=== PATIENT | female | born 1965 | race Caucasian/White ===

== ENCOUNTER 2017-10-02 14:13 | Emergency (ER) | payer OTHER ==
[~2017-10-02] VITALS: Wt 103.9 kg
[2017-10-02] MEDS ORDERED: ONDANSETRON 4 MG INJ IV STA (16:00)
[2017-10-02 16:07] LABS: BASOPHIL # 0.1 10^3/ul (0.0-0.1); BASOPHILS % 0.8 % (0.0-2.0); EOSINOPHILS # 0.2 10^3/ul (0.0-0.5); EOSINOPHILS % 3.1 % (0.0-7.0); HEMATOCRIT 41.7 % (37.0-47.0); HEMOGLOBIN 13.8 g/dl (12.0-16.0); LYMPHOCYTES # 2.4 10^3/ul (0.8-2.9); LYMPHOCYTES % 31.3 % (15.0-51.0); MEAN CORPUSCULAR HEMOGLOBIN 29.7 pg (29.0-33.0); MEAN CORPUSCULAR HGB CONC 33.1 g/dl (32.0-37.0); MEAN CORPUSCULAR VOLUME 89.7 fl (82.0-101.0); MEAN PLATELET VOLUME 9.8 fl (7.4-10.4); MONOCYTE # 0.6 10^3/ul (0.3-0.9); MONOCYTES % 7.2 % (0.0-11.0); NEUTROPHIL # 4.4 10^3/ul (1.6-7.5); NEUTROPHILS % 57.3 % (39.0-77.0); PLATELET COUNT 277 10^3/UL (140-415); RED BLOOD COUNT 4.65 10^6/ul (4.20-5.40); RED CELL DISTRIBUTION WIDTH 13.1 % (11.5-14.5); WHITE BLOOD COUNT 7.7 10^3/ul (4.8-10.8)
[2017-10-02 16:27] LABS: ALBUMIN 4.4 g/dl (3.3-4.9); ALBUMIN/GLOBULIN RATIO 1.1; BILIRUBIN,INDIRECT 0.1 mg/dl (0-1.1); BILIRUBIN,TOTAL 0.1 mg/dl (0.2-1.3); CALCIUM 9.1 mg/dl (8.4-10.2); CREATININE 0.87 mg/dl (0.44-1.00); TOTAL PROTEIN 8.4 g/dl (6.1-8.1)
[2017-10-02] MEDS ORDERED: ONDA4TAB14 PO (16:39)
[2017-10-02] MEDS ORDERED: DICY10CA60 PO (16:39)
--- NOTE | 2017-10-02 16:47 | ERD ---
ER Documentation Chief Complaint Chief Complaint ABD PAIN, NAUSEA, ONSET 3 DAYS HPI This is a pleasant 52-year-old female, Tamazight-speaking who presents the emergency room with abdominal pain. She describes epigastric and periumbilical abdominal discomfort for approximately 2-3 days with associated several episodes of nonbloody nonbilious emesis. The abdominal pain is cramping, no diarrhea. The patient is passing gas without difficulty. Patient denies any chest pain or shortness of breath no fevers or chills. ROS All systems reviewed and are negative except as per history of present illness. Medications Home Meds Active Scripts Dicyclomine Hcl* (Bentyl*) 10 Mg Capsule, 10 MG PO QID Y for abdominal cramping , #20 CAP Prov:YARA FAGAN MD 10/02/17 Ondansetron (Ondansetron Odt) 4 Mg Tab.rapdis, 4 MG PO Q6H Y for NAUSEA AND/OR VOMITING, #30 TAB Prov:YARA FAGAN MD 10/02/17 Allergies Allergies: Coded Allergies: No Known Allergy (Unverified , 10/02/17) PMhx/Soc Medical and Surgical Hx: pt denies Medical Hx, pt denies Surgical Hx History of Surgery: No Anesthesia Reaction: No Hx Neurological Disorder: No Hx Respiratory Disorders: No Hx Cardiac Disorders: No Hx Psychiatric Problems: No Hx Miscellaneous Medical Probl: No Hx Alcohol Use: No Hx Substance Use: No Hx Tobacco Use: No Smoking Status: Never smoker FmHx Family History: No diabetes Physical Exam Vitals Vital Signs Date Time Temp Pulse Resp B/P Pulse Ox O2 Delivery O2 Flow Rate FiO2 10/02/17 14:18 98.0 95 17 133/84 97 Physical Exam General: Well developed, well nourished, no acute distress Head: Normocephalic, atraumatic. Eyes: Pupils equally reactive, EOM intact ENT: Moist mucous membranes Neck: Supple, no lymphadenopathy Respiratory: Lungs clear bilaterally, no distress Cardiovascular: RRR, no murmurs, rubs, or gallops Abdominal: Soft, non-tender, non-distended, no peritoneal signs negative Grant sign, no tenderness to McBurney's point : Deferred MSK: No edema, no unilateral swelling, 5/5 strength Neurologic: Alert and oriented, moving all extremities, normal speech, no focal weakness, no cerebellar signs Skin: No rash Psych: Normal mood Result Diagram: 10/02/17 1545 10/02/17 1545 Results 24 hrs Laboratory Tests Test 10/02/17 15:45 White Blood Count 7.710^3/ul Red Blood Count 4.6510^6/ul Hemoglobin 13.8g/dl Hematocrit 41.7% Mean Corpuscular Volume 89.7fl Mean Corpuscular Hemoglobin 29.7pg Mean Corpuscular Hemoglobin Concent 33.1g/dl Red Cell Distribution Width 13.1% Platelet Count 25850^3/UL Mean Platelet Volume 9.8fl Neutrophils % 57.3% Lymphocytes % 31.3% Monocytes % 7.2% Eosinophils % 3.1% Basophils % 0.8% Nucleated Red Blood Cells % 0.0/100WBC Neutrophils # 4.410^3/ul Lymphocytes # 2.410^3/ul Monocytes # 0.610^3/ul Eosinophils # 0.210^3/ul Basophils # 0.110^3/ul Nucleated Red Blood Cells # 0.010^3/ul Sodium Level 142mmol/L Potassium Level 4.0mmol/L Chloride Level 106mmol/L Carbon Dioxide Level 26mmol/L Anion Gap 14 Blood Urea Nitrogen 20mg/dl Creatinine 0.87mg/dl Glucose Level 97mg/dl Calcium Level 9.1mg/dl Total Bilirubin 0.1mg/dl Direct Bilirubin 0.00mg/dl Indirect Bilirubin 0.1mg/dl Aspartate Amino Transf (AST/SGOT) 26IU/L Alanine Aminotransferase (ALT/SGPT) 41IU/L Alkaline Phosphatase 106IU/L Total Protein 8.4g/dl Albumin 4.4g/dl Globulin 4.00g/dl Albumin/Globulin Ratio 1.10 Lipase 168U/L Current Medications Medications (Trade) Dose Ordered Sig/Jc Route PRN Reason Start Time Stop Time Status Last Admin Dose Admin Ondansetron HCl (Zofran Inj) 4 mg ONCE STAT IV 10/02/17 16:00 10/02/17 16:04 DC 10/02/17 16:25 Procedures/MDM LAB INTERPRETATION: No leukocytosis no evidence of hepatobiliary obstruction MEDICAL DECISION MAKING: The patient presents with abdominal pain vomiting that is most likely viral nature. She has a benign abdominal exam without focal tenderness. She has no chest pain and no exertional symptoms that would be concerning for cardiogenic etiology. The patient has a benign abdominal exam with normal vital signs not suggestive of acute intra-abdominal process or acute vascular process. For this reason I do not believe that the patient requires diagnostic imaging including CT imaging at this time. ER COURSE: The patient was offered pain medication but refused. She is mostly symptomatic presently. The patient's laboratory testing is unrevealing. At this time I believe she can be safely discharged home with symptom control including nausea medication and Bentyl. We discussed return precautions and the patient verbalized understanding and feels comfortable with the plan. I kept the patient and/or family informed of laboratory and diagnostic imaging results throughout the emergency room course. DISPOSITION PLAN: We discussed follow up with the patient's primary care doctor within 24 to 48 hours as needed. We also discussed return to the emergency room for worsening symptoms or worsening condition. Outpatient referral: [None required] Discharge Medications: Bentyl, Zofran Departure Diagnosis: Primary Impression: Abdominal pain Abdominal location: generalized Qualified Code: R10.84 - Generalized abdominal pain Additional Impression: Nausea and vomiting Vomiting type: unspecified Vomiting Intractability: non-intractable Qualified Code: R11.2 - Non-intractable vomiting with nausea, unspecified vomiting type Condition: Stable Patient Instructions: Abdominal Pain, Nausea and Vomiting-Adult Referrals: [facility] ted se barnett hecho un examen mdico de control que le indica que no est en kiel condicin que requiera tratamiento urgente en el Departamento de Emergencia. Un estudio ms profundo y el tratamiento de farrar condicin pueden esperar sin ningn riesgo hasta que usted sea atendida/o en el consultorio de farrar mdico o kiel cl angeli. Es responsabilidad suya arreglar kiel grant para el seguimiento del christie. MANEJO DE CONDICIONES NO URGENTES EN EL FUTURO 1) Si usted tiene un mdico de atencin primaria: Usted debera llamar a farrar mdico de atencin primaria antes de venir al departamento de emergencia. Despus de las horas de consultorio, farrar doctor o farrar asociado/a est disponible por telfono. El mdico o enfermero de aurora en el servicio telefnico puede asesorarle por aj medio para atender el problema, o christie contrario se puede programar kiel grant. 2) Si usted no tiene un mdico de atencin primaria: Llame al mdico o clnica de referencia que aparece abajo elieser las horas de consultorio para hacer kiel grant para que le vean. CLINICAS: [facility] [phone] [facility] [phone] [facility] [phone] [place] [address] [phone] [place] [id number] [phone] [facility] [phone] [facility]. [facility] () Usted se barnett hecho un examen mdico de control que le indica que no est en kiel condicin que requiera tratamiento urgente en el Departamento de Emergencia. Un estudio ms profundo y el tratamiento de farrar condicin pueden esperar sin ningn riesgo hasta que usted sea atendida/o en el consultorio de farrar mdico o kiel cl angeli. Es responsabilidad suya arreglar kiel grant para el seguimiento del christie. MANEJO DE CONDICIONES NO URGENTES EN EL FUTURO 1) Si usted tiene un mdico de atencin primaria: Usted debera llamar a farrar mdico de atencin primaria antes de venir al departamento de emergencia. Despus de las horas de consultorio, farrar doctor o farrar asociado/a est disponible por telfono. El mdico o enfermero de aurora en el servicio telefnico puede asesorarle por aj medio para atender el problema, o christie contrario se puede programar kiel grant. 2) Si usted no tiene un mdico de atencin primaria: Llame al mdico o condado institucions de referencia que aparece abajo elieser las horas de consultorio para hacer kiel grant para que le vean. SI USTED NO PUEDE PAGAR PARA MAY UN MEDICO puede ir a: [facility] [address] [place] [address] [facility] [address] [place] [address] [facility] [address] [place] [address] PARA [facility] [address] [place], [place] [id number] Additional Instructions: Llame al doctor nombrado abajo (Referral Sources) MAANA y kaveh kiel GRANT PARA DENTRO DE KIEL SEMANA. Dgale a la secretaria que nosotros le instruimos hacer esta grant.Avise o llame si farrar condicin se empeora antes de la grant. YARA FAGAN MD Oct 02, 2017 16:47
[2017-10-02 16:49] VITALS: BP 118/77; PULSE 77; RESP 18; TEMP 98
== END 2017-10-02 16:48 | disposition home or self-care (01) ==
LOC: E/R 14:13
DX: R10.84 Generalized abdominal pain (principal); R11.2 Nausea with vomiting, unspecified
CPT/HCPCS: 36415; 80053; 83690; 85025; 96374; J2405; Z7502

== ENCOUNTER 2017-11-17 08:43 | Emergency (ER) | END 2017-11-17 10:26 | disposition home or self-care (01) ==

== ENCOUNTER 2017-12-21 00:03 | Inpatient (IN) | END 2017-12-22 17:30 | disposition home or self-care (01) | DRG 872 ==

== ENCOUNTER 2019-02-26 15:23 | Emergency (ER) | payer OTHER ==
[~2019-02-26] VITALS: Wt 70.0 kg
[~2019-02-26 15:23] MED LIST: CIPR500T4 PO
[2019-02-26] MEDS ORDERED: ONDANSETRON 4 MG INJ IV STA (18:36)
[2019-02-26] MEDS ORDERED: SOD CHLORIDE 0.9% 1,000 ML IV STA ×2 (18:36→21:10)
[2019-02-26] MEDS ORDERED: morphine 4 MG/ML VIAL IV STA (18:36)
--- NOTE | 2019-02-26 19:04 | ERD ---
ER Documentation Chief Complaint Chief Complaint R UPPER QUAD ABD PAIN SUDDEN ONSET TODAY. NO N.V.D HPI This is a 54-year-old female with no past medical history. The patient is [place] speaking. The patient indicates that she is complaining of a sudden onset of right upper quadrant pain. She indicated that the abdominal pain oc curred several hours prior to arrival. The pain does not radiate to the tip of her right scapula. The pain does not radiate to her lower abdomen. She states the pain occurred after she ate salsa. She had no nausea vomiting or diarrhea. She states the pain is 8 out of 10 in intensity. She did not take any analgesic medication prior to arrival. She does indicate over the past several months she has had similar episodes of pain. ROS All systems reviewed and are negative except as per history of present illness. Medications Home Meds Active Scripts Sucralfate* (Carafate*) 1 Gm Tab, 1 GM PO AC MEALS AND BEDTIME, #30 TAB Prov:MAUREEN SHETTY MD 02/26/19 Discontinued Scripts Ciprofloxacin Hcl* (Ciprofloxacin Hcl*) 500 Mg Tablet, 500 MG PO BID for 7 Days, #14 TAB Prov:TU GRAY NP 12/22/17 Allergies Allergies: Coded Allergies: No Known Allergy (Unverified , 02/26/19) PMhx/Soc History of Surgery: Yes (c/s x3, tubal ligation) Anesthesia Reaction: No Hx Neurological Disorder: No Hx Respiratory Disorders: No Hx Cardiac Disorders: No Hx Psychiatric Problems: No Hx Miscellaneous Medical Probl: No Hx Alcohol Use: No Hx Substance Use: No Hx Tobacco Use: No Smoking Status: Unknown if ever smoked Physical Exam Vitals Vital Signs Date Temp Pulse Resp B/P (MAP) Pulse Ox O2 O2 Flow FiO2 Time Delivery Rate 02/26/19 54 16 114/78 100 Room Air 22:33 (90) 02/26/19 60 16 99/72 (81) 100 Room Air 19:50 02/26/19 98.8 90 18 135/80 96 15:26 (98) Physical Exam Constitutional:Well-developed. Well-nourished. HEENT:Normocephalic. Atraumatic.Pupils were equal round reactive to light. Moist mucous membranes.No tonsillar exudates. Neck: No nuchal rigidity. No lymphadenopathy. No posterior cervical spine tenderness or step-offs. Respiratory: Not using accessory muscles of respiration.Lungs were clear to auscultation bilaterally. No rhonchi. No rales. No wheezing. Cardiovascular: Regular rate regular rhythm.No murmurs. No rubs were appreciated.S1, S2 normal. Distal pulses are palpable 2+ bilaterally. GI: Abdomen was soft. Right upper quadrant tenderness with negative Grant sign. Non Distended. No pulsatile abdominal masses or bruits. No rebound. No guarding. Bowel sounds were present and normal. Muscle skeletal: Full range of motion of both the upper and lower extremities bilaterally.Normal muscle tone.No assymetrical calf tenderness or swelling. Skin: No petechia, no purpura. No lesions on the palms or the soles of the feet. No maculopapular rash. NEURO: Patient was alert, awake, orientated x3.No facial droop. Gait observed and normal with no ataxia.Speech had regular rate and rhythm. No focal neurological deficits. Result Diagram: 02/26/19 1843 02/26/19 1843 Results 24 hrs Laboratory Tests Test 02/26/19 18:43 02/26/19 22:05 White Blood Count 7.0 10^3/ul Red Blood Count 4.74 10^6/ul Hemoglobin 14.0 g/dl Hematocrit 42.1 % Mean Corpuscular Volume 88.8 fl Mean Corpuscular Hemoglobin 29.5 pg Mean Corpuscular Hemoglobin Concent 33.3 g/dl Red Cell Distribution Width 12.7 % Platelet Count 247 10^3/UL Mean Platelet Volume 10.0 fl Immature Granulocytes % 0.300 % Neutrophils % 50.3 % Lymphocytes % 40.1 % Monocytes % 6.3 % Eosinophils % 2.1 % Basophils % 0.9 % Nucleated Red Blood Cells % 0.0 /100WBC Immature Granulocytes # 0.020 10^3/ul Neutrophils # 3.5 10^3/ul Lymphocytes # 2.8 10^3/ul Monocytes # 0.4 10^3/ul Eosinophils # 0.2 10^3/ul Basophils # 0.1 10^3/ul Nucleated Red Blood Cells # 0.0 10^3/ul Prothrombin Time 12.7 Sec Prothrombin Time Ratio 1.0 INR International Normalized Ratio 0.94 Activated Partial Thromboplast Time 28.5 Sec Sodium Level 142 mmol/L Potassium Level 4.1 mmol/L Chloride Level 106 mmol/L Carbon Dioxide Level 27 mmol/L Anion Gap 9 Blood Urea Nitrogen 15 mg/dl Creatinine 0.82 mg/dl Est Glomerular Filtrat Rate mL/min > 60 mL/min Glucose Level 107 mg/dl Calcium Level 9.7 mg/dl Total Bilirubin 0.3 mg/dl Direct Bilirubin 0.00 mg/dl Indirect Bilirubin 0.3 mg/dl Aspartate Amino Transf (AST/SGOT) 21 IU/L Alanine Aminotransferase (ALT/SGPT) 19 IU/L Alkaline Phosphatase 98 IU/L Troponin I < 0.012 ng/ml Total Protein 8.5 g/dl Albumin 4.3 g/dl Globulin 4.20 g/dl Albumin/Globulin Ratio 1.02 Amylase Level 104 U/L Lipase 146 U/L Urine Color YELLOW Urine Clarity SLIGHTLY CLOUDY Urine pH 5.0 Urine Specific [place]el 1.013 Urine Ketones NEGATIVE mg/dL Urine Nitrite NEGATIVE mg/dL Urine Bilirubin NEGATIVE mg/dL Urine Urobilinogen NEGATIVE mg/dL Urine Leukocyte Esterase TRACE Domitila/ul Urine Microscopic RBC 1 /HPF Urine Microscopic WBC 14 /HPF Urine Squamous Epithelial Cells FEW /HPF Urine Bacteria FEW /HPF Urine Mucus FEW /HPF Urine Hemoglobin NEGATIVE mg/dL Urine Glucose NEGATIVE mg/dL Urine Total Protein NEGATIVE mg/dl Current Medications Medications Dose Sig/Jc Start Time Status Last (Trade) Ordered Route PRN Stop Time Admin Dose Reason Admin Sodium 1,000 ml @ Q1H STAT 02/26/19 DC 02/26/19 Chloride 1,000 mls/hr IV 18:36 18:55 02/26/19 19:35 Morphine 4 mg ONCE STAT 02/26/19 DC 02/26/19 Sulfate IV 18:36 19:31 (morphine) 02/26/19 18:38 Ondansetron 4 mg ONCE STAT 02/26/19 DC 02/26/19 HCl (Zofran IV 18:36 19:31 Inj) 02/26/19 18:38 Sodium 1,000 ml @ Q1H STAT 02/26/19 DC 02/26/19 Chloride 1,000 mls/hr IV 21:10 21:47 02/26/19 22:09 40 ml ONCE STAT 02/26/19 DC 02/26/19 Miscellaneous PO 21:10 21:47 Medication 02/26/19 21:26 (Gi Cocktail (2)) Belladonna/ 2 tab ONCE STAT 02/26/19 DC 02/26/19 Phenobarbital PO 21:10 21:47 () 02/26/19 21:26 Procedures/MDM The patient presented to the emergency department with epigastric pain. My differential diagnosis included but was not limited to abdominal aortic aneurysm, choledocholithiasis, gallstone ileus, renal colic, pyelonephritis, pancreatitis, peptic ulcer disease, atypical myocardical infarction, mesenteric ischemia, GERD, pulmonary infarction. The patient was placed on a cardiac/vascular sonographer, continuous pulse oximetry and IV access was established by nursing staff. The patient was given intravenous morphine Zofran and Toradol for analgesia control An EKG was obtained to rule out myocardial ischemia. There was no elevation of LFTs to suggest ductal obstruction, cholangitis, cholecystiitis or hepatitis. Given that the urinalysis did not show bilirubinuria, my suspicion for common duct obstruction or hepatitis was low. 12 Lead EKG tracing ordered and reviewed by myself showed: Sinus bradycardia 59 bpm and no arrhythmia. HI interval normal. QRS duration normal. No ST segment elevation No ST segment depression. No changes consistent with acute ischemia. I obtained an ultrasound that showed no evidence of cholelithiasis. The patient had a leukocytosis. There is no transaminitis. My clinical suspicion was low for appendicitis. I indicated the patient I did not have an exact etiology into her epigastric pain but I did feel she would benefit from an outpatient upper endoscopy. She was given a GI cocktail with significant improvement of her symptoms. Observation Note: Time: 4 hours Family Hx: No Hypertension Evaluation: Multiple exams showed improving symptoms and no evidence of worsening of her symptoms. Departure Diagnosis: Primary Impression: Abdominal pain Abdominal location: right upper quadrant Qualified Codes: R10.11 - Right upper quadrant pain Condition: MAUREEN King MD Feb 26, 2019 19:04
[2019-02-26] MEDS ORDERED: BELLADONNA/PHENOBARBITAL TAB PO STA (21:10)
[2019-02-26] MEDS ORDERED: LIDOCAINE/MYLANTA 40 ML BTL PO STA (21:10)
[2019-02-26] MEDS ORDERED: SUCR1TAB56 PO (22:24)
[2019-02-26 22:33] VITALS: BP 114/78; PULSE 54; RESP 16
== END 2019-02-26 22:35 | disposition home or self-care (01) ==
LOC: E/R 15:23
DX: R10.11 Right upper quadrant pain (principal)
CPT/HCPCS: 36415; 76705; 80053; 81001; 82150; 83690; 84484; 85025; 85610; 85730; 93005; 96374; 96375; J2270; J2405; J7030; Z7502; Z7610

== ENCOUNTER 2019-05-22 23:13 | Emergency (ER) | payer OTHER ==
[~2019-05-22] VITALS: Ht 160 cm; Wt 92.7 kg
[~2019-05-22 23:13] MED LIST changes: -CIPR500T4 PO; +IBUP-1542 PO; +ONDA4TAB14 PO; +SUCR1TAB56 PO
[2019-05-22 23:17] VITALS: Ht 160 cm; Wt 92.7 kg
[2019-05-23] MEDS ORDERED: ONDANSETRON (ODT) 4 MG TAB ODT STA (01:08)
--- NOTE | 2019-05-23 01:15 | ERD ---
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 Patient saw the spider said it was not a black or brown recluse just a "house spider" she immediately put alcohol on area where she feels there is a spider bite. Complains of mild pain to the area and nausea. ROS All systems reviewed and are negative except as per history of present illness. Medications Home Meds Active Scripts Ondansetron (Ondansetron Odt) 4 Mg Tab.rapdis, 4 MG PO Q6H PRN for NAUSEA AND/OR VOMITING, #10 TAB Prov:KASHIF ANDERSON NP 05/23/19 Ibuprofen* (Motrin*) 600 Mg Tab, 600 MG PO Q6, #30 TAB Prov:KASHIF ANDERSON NP 05/23/19 Sucralfate* (Carafate*) 1 Gm Tab, 1 GM PO AC MEALS AND BEDTIME, #30 TAB Prov:MAUREEN SHETTY MD 02/26/19 Allergies Allergies: Coded Allergies: No Known Allergy (Unverified , 02/26/19) PMhx/Soc History of Surgery: Yes (c/s x3, tubal ligation) Anesthesia Reaction: No Hx Neurological Disorder: No Hx Respiratory Disorders: No Hx Cardiac Disorders: No Hx Psychiatric Problems: No Hx Miscellaneous Medical Probl: No Hx Alcohol Use: No Hx Substance Use: No Hx Tobacco Use: No Smoking Status: Never smoker FmHx Family History: No diabetes, No coronary disease, No other Physical Exam Vitals Vital Signs Date Temp Pulse Resp B/P (MAP) Pulse Ox O2 O2 Flow FiO2 Time Delivery Rate 05/22/19 97.9 91 20 114/66 95 23:17 (82) Physical Exam Const: No acute distress Head: Atraumatic Eyes: Normal Conjunctiva ENT: Normal External Ears, Nose and Mouth. Neck: Full range of motion. No meningismus. No lymphadenopathy Resp: Clear to auscultation bilaterally, wheezing, no rales, no increased work of breathing Cardio: Regular rate and rhythm, no murmurs Abd: Soft, non tender, non distended. Normal bowel sounds Skin: No petechiae or rashes. LUE: Back: No midline or flank tenderness Ext: No cyanosis, or edema Neur: Awake and alert, CN II-XII intact, clear speech, steady gait Psych: Normal Mood and Affect Results 24 hrs Current Medications Medications Dose Sig/Jc Start Time Status Last (Trade) Ordered Route PRN Stop Time Admin Dose Reason Admin Ibuprofen 600 mg ONCE ONCE 05/23/19 (Motrin) PO 01:30 05/23/19 01:31 Ondansetron 4 mg ONCE STAT 05/23/19 DC HCl (Zofran ODT 01:08 Odt) 05/23/19 01:09 Procedures/MDM PROCEDURES/MDM -Medications: Zofran, ibuprofen Patient tolerated medication well with no adverse reactions. Patient reported improvement in pain. 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 Patient believes it was a spider. She immediately applied alcohol to the area where she believes she had a spider bite. Upon physical exam, there is no redness no swelling no area of demarcation, no target lesion, no erythema, no tenderness. No weakness or paresthesia to left upper extremity, no neurological or neurovascular deficits noted. Very low suspicion for infection or progression to cellulitis or necrotizing infection. She has been instructed to use ibuprofen, application of ice, and instructed on signs and symptoms of red flags to return to emergency room. DISPOSITION and PLAN: RX: Ibuprofen, Zofran The patient has been discharge home to follow-up with community physician. Departure Diagnosis: Primary Impression: Insect bite Encounter type: initial encounter Site of insect bite: upper arm Laterality: left Qualified Codes: S40.862A - Insect bite (nonvenomous) of left upper arm, initial encounter; W57.XXXA - Bitten or stung by nonvenomous insect and other nonvenomous arthropods, initial encounter Condition: Stable Patient Instructions: Insect Bite Additional Instructions: Visite a leni carrasco para un EXAMEN.Regrese a estas instalaciones si no se mejora chance esperbamos o chance le franciamos. Thank you very much for allowing us to participate in your care. Your health and safety is our top priority at [facility]. Call your primary care doctor TOMORROW for an appointment during the next 2-4 days and bring all the information and medications prescribed. Have prescriptions filled and follow precisely the directions on the label. If the symptoms get worse and your provider is unavailable, return to the Emergency Department immediately. KASHIF ANDERSON NP May 23, 2019 01:15
[2019-05-23] MEDS ORDERED: IBUPROFEN 600 MG TAB PO ONE (01:30)
[2019-05-23 01:53] VITALS: BP 110/70; PULSE 88; RESP 18
== END 2019-05-23 01:53 | disposition home or self-care (01) ==
LOC: FTE 23:13
DX: S40.862A Insect bite (nonvenomous) of left upper arm, initial encounter (principal); R11.0 Nausea; W57.XXXA Bitten or stung by nonvenomous insect and other nonvenomous arthropods, initial encounter; Y92.9 Unspecified place or not applicable
CPT/HCPCS: Z7502; Z7610; 99283